=== PATIENT | male | born 1970 | race Caucasian/White ===

== ENCOUNTER 2020-06-08 19:57 | Inpatient (IN) | payer SELFPAY ==
[~2020-06-08] VITALS: Ht 180.3 cm; Wt 78.9 kg
[2020-06-08 19:38] VITALS: BP 172/116
[2020-06-08] MEDS: VANCOMYCIN PER PHARMACY MC PRN (20:28)
[2020-06-08] MEDS ORDERED: ONDANSETRON ODT 4 MG TAB.RAPDIS. PO PRN (20:30)
[2020-06-08] MEDS ORDERED: ACETAMINOPHEN 325 MG TABLET. PO PRN (20:30)
--- NOTE | 2020-06-08 20:32 | NUR ---
Pharmacy Vancomycin Dosing Note S: Consulted to monitor and dose vancomycin started 06/08/20. O: RUFINA SANCHEZ is a 49 year old M with right foot infection. Other Antibiotics: ZOSYN 3.375 GM Q6HRS LABS: Last BUN: 19 Last Creatinine: 1.2 Creatinine Clearance: 78 mL/min Last WBC: 8.9 Tmax (past 24 hours): 99.3 Last dose given 06/08/20 at 1618 Vancomycin Dosing: Dosing Weight: Actual Target Trough: 10-20 A: Based on: patient's age, weight and renal function. P: 1. Begin Vancomycin 1250 mg IV q12h after inital loading dose. 2. Follow up Trough level on 06/10/20 at 1530. 3. Pharmacy will continue to monitor, follow and adjust therapy as needed. CORKY MELÉNDEZ RPH, 06/08/202031
[2020-06-08 23:30] VITALS: BP 154/105
[2020-06-09] VITALS (7 sets, daily range): BP systolic 147–179; BP diastolic 90–132
[2020-06-09] MEDS: PIPERACILLIN/TAZOBACTAM 3.375 GM in IV NORMAL SALINE 50ML 50 ML IV SCH ×4 (00:16→19:59)
[2020-06-09] MEDS: VANCOMYCIN 1.25 GM in IV NORMAL SALINE 250ML 250 ML IV SCH ×2 (03:33→18:02)
[2020-06-09 08:29] LABS: BASO % 0 % (0-3); EOS # 0.1 x10^3/uL (0.0-0.7); EOS % 1 % (0-3); HEMATOCRIT 40.4 % (39.0-53.0); LYMPH % 16 % (24-48); MEAN CORPUSCULAR HEMOGLOBIN 33 pg (25-35); MEAN CORPUSCULAR HGB CONC 35 g/dL (31-37); MEAN CORPUSCULAR VOLUME 96 fL (79-100); MONO # 0.5 x10^3/uL (0.0-1.1); MONO % 8 % (0-9); NEUT # 4.9 x10^3/uL (1.8-7.7); NEUT % 76 % (31-73); PLATELET COUNT 192 x10^3/uL (140-400); RED CELL DISTRIBUTION WIDTH 13.2 % (11.5-14.5); WHITE BLOOD COUNT 6.5 x10^3/uL (4.0-11.0)
[2020-06-09 08:57] LABS: ALBUMIN 2.5 g/dL (3.4-5.0); ALBUMIN/GLOBULIN RATIO 0.7 (1.0-1.7); CALCIUM 8.3 mg/dL (8.5-10.1); CREATININE 0.9 mg/dL (0.7-1.3); GFR 90.4; POTASSIUM 3.6 mmol/L (3.5-5.1); TOTAL BILIRUBIN 1.2 mg/dL (0.2-1.0); TOTAL PROTEIN 6.1 g/dL (6.4-8.2)
--- NOTE | 2020-06-09 09:08 | PDOC ---
Infectious Disease Note Vital Sign Vital Signs Vital Signs Date Time Temp Pulse Resp B/P (MAP) Pulse Ox O2 Delivery O2 Flow Rate FiO2 06/09/20 07:00 98.4 64 19 155/96 (115) 95 Room Air 98.4 Labs Lab Laboratory Tests Test 06/09/20 07:35 06/09/20 07:38 Sodium Level 139 mmol/L (136-145) Potassium Level 3.6 mmol/L (3.5-5.1) Chloride Level 107 mmol/L (98-107) Carbon Dioxide Level 21 mmol/L (21-32) Anion Gap 11 (6-14) Blood Urea Nitrogen 11 mg/dL (8-26) Creatinine 0.9 mg/dL (0.7-1.3) Estimated GFR (Cockcroft-Gault) 90.4 BUN/Creatinine Ratio 12 (6-20) Glucose Level 113 mg/dL (70-99) Calcium Level 8.3 mg/dL (8.5-10.1) Total Bilirubin 1.2 mg/dL (0.2-1.0) Aspartate Amino Transf (AST/SGOT) 13 U/L (15-37) Alanine Aminotransferase (ALT/SGPT) 21 U/L (16-63) Alkaline Phosphatase 72 U/L (46-116) C-Reactive Protein, Quantitative 103.4 mg/L (0-3.3) Total Protein 6.1 g/dL (6.4-8.2) Albumin 2.5 g/dL (3.4-5.0) Albumin/Globulin Ratio 0.7 (1.0-1.7) White Blood Count 6.5 x10^3/uL (4.0-11.0) Red Blood Count 4.20 x10^6/uL (4.30-5.70) Hemoglobin 14.0 g/dL (13.0-17.5) Hematocrit 40.4 % (39.0-53.0) Mean Corpuscular Volume 96 fL (79-100) Mean Corpuscular Hemoglobin 33 pg (25-35) Mean Corpuscular Hemoglobin Concent 35 g/dL (31-37) Red Cell Distribution Width 13.2 % (11.5-14.5) Platelet Count 192 x10^3/uL (140-400) Neutrophils (%) (Auto) 76 % (31-73) Lymphocytes (%) (Auto) 16 % (24-48) Monocytes (%) (Auto) 8 % (0-9) Eosinophils (%) (Auto) 1 % (0-3) Basophils (%) (Auto) 0 % (0-3) Neutrophils # (Auto) 4.9 x10^3/uL (1.8-7.7) Lymphocytes # (Auto) 1.0 x10^3/uL (1.0-4.8) Monocytes # (Auto) 0.5 x10^3/uL (0.0-1.1) Eosinophils # (Auto) 0.1 x10^3/uL (0.0-0.7) Basophils # (Auto) 0.0 x10^3/uL (0.0-0.2) Objective Assessment pt seen, consult dictated Plan Plan of Care / DOMENIC BEASLEY MD Jun 09, 2020 09:08
--- NOTE | 2020-06-09 09:31 | NUR ---
SW following. Discussed with RN, pt from home with family, room air, regular diet. Discussion RE possible I&D. Med Assist following for self pay status. SW will continue to follow.
--- NOTE | 2020-06-09 10:06 | CONS ---
DATE OF CONSULTATION: 06/09/2020 REQUESTING PHYSICIAN: Orlin Antoine MD REASON FOR CONSULTATION: Right foot infection. HISTORY OF PRESENT ILLNESS: This is a 49-year-old gentleman who was transferred from [facility]. The patient has developed a right foot wound, probably about a week ago, although he has had callus before then as he has spina bifida. He has had the leg lengthening surgery done when he was a child and has since then off and on he is getting pressure on the right leg and developing some wound. Has had some right foot surgery done in the past. SOCIAL HISTORY: Negative for smoking, alcohol or illicit drug use. ALLERGIES: No known drug allergies. CURRENT MEDICATIONS: The patient is on vancomycin and Zosyn. REVIEW OF SYSTEMS: As per HPI, all other systems reviewed are negative. PHYSICAL EXAMINATION: GENERAL: Alert, oriented gentleman, not in distress. VITAL SIGNS: Stable, afebrile. HEENT: NAD. NECK: Supple, no JVP, no lymphadenopathy. LUNGS: Clear. HEART: S1, S2 regular. ABDOMEN: Benign. EXTREMITIES: No edema, cyanosis. SKIN: Unremarkable other than right foot, has a large abscess on the plantar and lateral surface of the right foot with some erythema onto the dorsal surface as well as purulent drainage from the wound and some necrotic tissue. SKIN: Rest of the skin examination unremarkable. NEUROLOGIC: The patient is neurologically alert, awake and appropriate. No focal neurologic deficit. LABORATORY DATA: White count is 6.5. BUN and creatinine is normal. The patient did have x-ray of the foot, which showed a remodeling of the proximal fifth and to a lesser extent the proximal fourth metatarsal. His blood culture and/or any culture done at [place], we will try to obtain. IMPRESSION: 1. Right foot abscess. 2. Right foot cellulitis. 3. Leukocytosis. 4. Spina bifida. RECOMMENDATIONS: Will have Vascular Surgery and/or Orthopedic Surgery look at it and he will need I and D. Thank you very much, Dr. Antoine, for giving me the opportunity to participate in this patient's care. DOMENIC BEASLEY MD DR: YOSI/jennifer JOB#: [id number] / [id number]
--- NOTE | 2020-06-09 11:02 | PN ---
DATE: 06/09/2020 SUBJECTIVE: The patient is resting, slightly propped up in bed, in no apparent distress. On questioning him, he denied any complaint, in particular denied any pain or fever. He was seen by the Infectious Disease specialist and orthopedic surgeon. The orthopedic surgeon was consulted for probably incision and drainage. Meanwhile, he was continued on his vancomycin and Zosyn for now. PHYSICAL EXAMINATION: GENERAL: When I examined him this morning, he looked well and was clearly in no apparent respiratory distress. No pallor, jaundice, cyanosis or thyromegaly. No jugular venous distention or limb edema. VITAL SIGNS: Her heart rate was 64, blood pressure was 155/96, temperature was 98.4, respiratory rate was 19 and oxygen saturation was 95% on room air. EXTREMITIES: Right foot is still erythematous with an abscess in the outer aspect of the right foot. LABORATORY DATA: Her lab work this morning showed a white cell count 6500, hemoglobin 14, hematocrit 40, MCV 96, and platelet count of 192,000. His chemistry showed a serum sodium of 139, potassium 3.6, chloride 107, bicarbonate 21, anion gap of 11, BUN 11, creatinine 0.9, estimated GFR was 90 mL per minute. His glucose was 113, calcium was 8.3. Total bilirubin 1.2. AST, ALT, alkaline phosphatase were normal. C-reactive protein was 103 mg/dL, total protein was 6.1, albumin 2.5. ASSESSMENT: Right foot cellulitis, right foot abscess spina bifida. PLAN: To continue with IV antibiotic. Await evaluation by the orthopedic surgeon. CHUNG MOODY MD DR: REZA/jennifer JOB#: [id number] / [id number]
--- NOTE | 2020-06-09 11:24 | HP ---
ADMIT DATE: 06/08/2020 HISTORY OF PRESENT ILLNESS: The patient is a 49-year-old male patient who was seen yesterday at [facility] Emergency Room with a complaint of wound in the lateral aspect of his right foot together with swelling and redness. He apparently had had spina bifida and stated that he always has a callus on the outer side of his right foot. He apparently had surgery that made his left lower extremity is longer than the right lower extremity and therefore most of his weight is on right side, the outer aspect of the right foot. Last Saturday, he noted that he has an open wound and his right foot become red, swollen, warm to touch and with purulent drainage; however, denied any fever, chills or rigors. He has been taking Aleve for pain at home with little relief. He is a daily drinker. He drinks 2 cans of beer after work. He was evaluated in the Emergency Room and has had lab work, which showed his white cell count to be normal as well as his chemistry and x-ray of the right foot showed that the patient has significant soft tissue swelling laterally, has bony remodeling of the proximal fifth and to lesser extent the proximal fourth metatarsal. This could be secondary to old infection. There is no lytic destruction changes to suggest acute infarction. Clinical correlation is suggested. Therefore, the patient was started on IV antibiotic in the form of vancomycin and Zosyn and was transferred to [facility] to consult the Infectious Disease specialist and perhaps the orthopedic surgeon. PAST MEDICAL HISTORY: Significant for spina bifida. He has recurrent right foot infection, left sided footdrop. He is incontinent of his urine. PAST SURGICAL HISTORY: Significant for surgery to lengthen his left lower extremity. He has also a tendon transfer his right foot. ALLERGIES: He has no known drug allergies. MEDICATIONS: He is on Aleve occasionally that is [id number], none by prescription. FAMILY HISTORY: He has 2 brothers who are younger and healthy. His father is still alive at the age of 68 and has hypertension. Mother is alive at the age of 67 and has diabetes mellitus. SOCIAL HISTORY: He is single, has 2 daughters. He quit smoking about 20 years ago. He drinks 2 beers daily after work, does not use any drugs. 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 REVIEW OF SYSTEMS: As per history of present illness. PHYSICAL EXAMINATION: GENERAL: On arrival to the Emergency Room, he looked well and was clearly in no apparent respiratory distress. No pallor, jaundice, cyanosis or thyromegaly. No jugular venous distention. No lower limb edema. VITAL SIGNS: His heart rate was 92, blood pressure was 147/107, temperature was 99.3, respiratory rate was 26 and oxygen saturation was 96% on room air. HEAD, EYES, EARS, NOSE AND THROAT: Showed normocephalic, atraumatic. NECK: Supple. HEART: Normal first and second heart sounds. No gallop, rub or murmur. CHEST: Clear to auscultation. No crepitation or rhonchi. ABDOMEN: Distended, scaphoid, soft, nontender. NEUROLOGIC: He is awake, alert, responding appropriately. All cranial nerves are intact. He moves all extremities without difficulty, has marked muscle wasting and footdrop on the left side. Right foot is markedly swollen, red with open wound on the outer aspect. LABORATORY DATA: His lab work on arrival to the Emergency Room showed a white cell count 8900, hemoglobin 16, hematocrit 47, MCV 96, and platelet count 215,000. His chemistry showed a serum sodium 136, potassium 3.7, chloride 101, bicarbonate 29, anion gap of 6, BUN 19, creatinine 1.2, estimated GFR was 65 mL per minute, his glucose 131, lactic acid was 1.5, calcium was 9.1. Total bilirubin, AST, ALT, alkaline phosphatase were normal. Total protein 7.6, albumin was 3.2. Urinalysis showed the urine was yellow, turbid with a pH of 7, specific gravity of 1.025. The urine showed trace of protein, negative for glucose, small amount of ketones, trace of blood, negative for nitrite and bilirubin, small amount of leukocyte esterase, occasional rbc's, 20-40 wbc's, and many bacteria. ASSESSMENT AND PLAN: The patient was transferred to [facility] with right foot cellulitis, questionable urinary tract infection and he was started on vancomycin and Zosyn. I have consulted the Infectious Disease specialist and we might have to consult the orthopedic surgeon for surgical debridement. CHUNG MOODY MD DR: REZA/jennifer JOB#: [id number] / [id number]
[2020-06-09] MEDS ORDERED: PROPOFOL 10 MG/ML (20ML) VIAL. IV ONE (12:26)
[2020-06-09] MEDS ORDERED: LIDOCAINE 2% PF 5 ML VIAL. ONE (12:26)
[2020-06-09] MEDS ORDERED: IV RINGERS,LACTATED 1000ML 1,000 ML IV SCH (13:00)
[2020-06-09] MEDS ORDERED: fentaNYL PF VIAL 100 MCG/2 ML VIAL IVP PRN (13:00)
[2020-06-09] MEDS ORDERED: PROCHLORPERAZINE 10 MG/2 ML VIAL. IVP PRN (13:00)
[2020-06-09] MEDS ORDERED: HYDROmorphone 2 MG/ML VIAL IVP PRN (13:00)
--- NOTE | 2020-06-09 13:31 | CONS ---
DATE OF CONSULTATION: 06/09/2020 REQUESTING PHYSICIAN: Dr. Brian Kay. REASON FOR CONSULTATION: Right foot infection. HISTORY OF PRESENT ILLNESS: The patient is a 49-year-old male with a history of spinal condition and a leg length discrepancy and he had a lengthening done on his left leg, it made it a bit longer than the right. He also has a drop foot on the left, wearing an ASO brace and has had some chronic callous over the lateral aspect of the right foot as he turns the foot outward apparently accommodate for the leg length discrepancy. He says over the past few days he has had drainage of that callused area on the right foot and developed a large swollen knot over the foot and redness and pain. He denies any fever, chills and was admitted from [facility] Emergency Department with the foot infection. PAST MEDICAL HISTORY: Significant for the spinal condition congenitally, urinary incontinence and a left-sided foot drop. PAST SURGICAL HISTORY: Lengthening of his left lower extremity and a tendon transfer procedure. ALLERGIES: He has no known drug allergies. MEDICATIONS: He occasionally takes an anti-inflammatory [id number] most recently Aleve. SOCIAL HISTORY: He is single, with 2 daughters. Quit smoking 20 years ago. Occasional alcohol consumption, couple of beers, perhaps after work. 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 FAMILY HISTORY: Father with hypertension, mother with diabetes, 2 healthy brothers. REVIEW OF SYSTEMS: Significant for the recent right foot pain, redness, swelling and drainage. Denies any fever, chills or penetrating injury. Otherwise, negative review of systems other than per the history of present illness. PHYSICAL EXAMINATION: GENERAL: Pleasant, cooperative 49-year-old male, alert and oriented, no acute distress. EXTREMITIES: Examination of the right foot reveals a large callused area over approximately the mid fifth metatarsal area laterally and plantarly, appears to have oozing drainage with some serous nature, but some purulence as well. He has significant redness around and a large swollen area around the callused area on the lateral aspect of his foot. He can wiggle his toes and no severe tenderness over the tendon sheaths. On examination of the left leg, he does have slightly longer left leg than right and has foot drop, wears an ASO brace. Skin is otherwise intact and he has normal alignment and stability of bilateral hips, knees and ankles. IMAGING: X-rays show some bony remodeling over the lateral aspect of his foot. IMPRESSION: Right lateral foot wound with infection. TREATMENT PLAN: I went over with him the necessity of surgically exploring and debriding any devitalized tissue in this area. we would generally leave this open and may be packed perhaps the use of a wound VAC later, but at this time, I would expect that he may even need multiple procedures for debridement as the tissue tends to declare itself later, somewhat and this could be a long time in healing up and required extensive wound care, other procedures and even potentially loss of his foot if the infection is not able to be controlled adequately. All his questions were answered. He wishes to proceed with surgical evaluation and treatment, which will occur today about 2:00 p.m. as he had breakfast at a little before 8:00. TU CHI MD DR: BRITTANY/jennifer JOB#: [id number] / [id number]
[2020-06-09] MEDS ORDERED: DEXAMETHASONE SOD PHOS 4 MG/ML VIAL ONE (14:16)
[2020-06-09] MEDS ORDERED: ONDANSETRON PF 4 MG/2 ML VIAL. ONE (14:16)
[2020-06-09] MEDS ORDERED: fentaNYL PF VIAL 100 MCG/2 ML VIAL ONE ×2 (14:16→16:06)
[2020-06-09] MEDS ORDERED: hydrALAZINE 20 MG/ML VIAL. ONE (14:31)
[2020-06-09] MEDS ORDERED: LABETALOL 20 MG/4 ML DISP.SYRIN. IVP ONE (14:31)
[2020-06-09] MEDS: hydrALAZINE 20 MG/ML VIAL. IVP PRN ×2 (14:38→19:42)
[2020-06-09] MEDS ORDERED: LABETALOL 20 MG/4 ML DISP.SYRIN. IVP PRN ×2 (14:45→21:30)
[2020-06-09] MEDS ORDERED: MORPHINE SULFATE 2 MG/ML VIAL. ONE ×2 (16:06→16:59)
[2020-06-09] MEDS: MORPHINE SULFATE 2 MG/ML VIAL. IVP PRN ×4 (16:12→17:15)
[2020-06-09] MEDS: fentaNYL PF VIAL 100 MCG/2 ML VIAL IVP PRN ×2 (16:38→16:48)
--- NOTE | 2020-06-09 16:46 | PDOC4 ---
Operative Note Operative Note Date of surgery: 06/09/2020 Preoperative diagnosis: Right foot ulcer with deep tissue infection Postoperative diagnosis: Same Operative procedure: Irrigation debridement of right foot ulcer and infection with debridement down to but not including bone, application of wound VAC right foot Surgeon: Fadi Anesthesia: General Estimated blood loss: 100 cc Complications: None Operative indications: Please see my dictated orthopedic consult for detailed operative indications Operative text: Patient was identified procedure verified patient placed in the supine position on the operating table. After adequate amounts of general anesthesia were administered the right lower extremity was prepped and draped in standard sterile fashion and after timeout was performed patient procedure of identified and verified a longitudinal incision was made centered on the ulcerated area and extensive debridement was carried out of the tissue probing deep to the ulcer. There did not appear to be clinical evidence of osteomyelitis after debridement down to but not including bone but extensive soft tissue was removed allowing excision of involved skin around the ulcerated area and removal of the callus and excision of excess skin. Bleeding points were controlled by electrocautery. After removal of all devitalized visible tissue thorough irrigation carried out with normal saline solution and pulse lavage. Wound VAC foam was then applied and dressing was verified to hold suction. There was at first some bloody drainage which resolved into just slight bloody drainage with mostly bubbles. Patient was returned to recovery room in stable condition having tolerated the procedure well TU CHI MD Jun 09, 2020 16:46
--- NOTE | 2020-06-09 17:26 | NUR ---
Wound Care Received call from CUSTOMER SERVICE CORRESPONDENCE CLERK Elo re: wound vac alarming. Upon assessment, vac canister had > 100cc of sanguinous drainage, vac turned off at this time, paged Dr. Aponte. After speaking with Dr. Aponte, orders received to remove vac and dressing, apply light pressure dressing and attempt to apply vac tomorrow. Vac dressing and foam removed, area of slow bleed at 9:00, pressure held for > 5 minutes, then applied Biopad (collagen pad), covered with Xeroform gauze, dry gauze, ABD, kerlix and Coban. Pt educated on having RN cut Coban off if any signs of pain or numbness, pt v/u. Pt has an easily palpable pedal pulse, foot warm. Also instructed pt to keep leg elevated on multiple pillows. Will re-evaluate tomorrow for vac application. POC discussed with Elo, CUSTOMER SERVICE CORRESPONDENCE CLERK.
--- NOTE | 2020-06-09 19:42 | NUR ---
Blood pressure 179/135. Hydralazine 10mg given IV push. Will monitor.
[2020-06-09] MEDS: oxyCODONE IR 5 MG TABLET PO PRN (19:59)
--- NOTE | 2020-06-09 21:00 | NUR ---
Patient c/o abdominal pain. Patient was only able to void 30cc urine. Bladder scan done. Results 860cc. Blood pressure at 2055 155/98.
[2020-06-09] MEDS: LACTOBACILLUS RHAMNOSUS GG 1 CAPSULE. PO SCH (21:01)
--- NOTE | 2020-06-09 21:20 | NUR ---
Dr. Antoine called regarding bladder scan results and patient's BP. Orders received.
--- NOTE | 2020-06-09 21:50 | NUR ---
Patient was straight catheterized and residual amount of urine was 1200cc. Will continue to monitor.
[2020-06-10] MEDS: PIPERACILLIN/TAZOBACTAM 3.375 GM in IV NORMAL SALINE 50ML 50 ML IV SCH ×5 (00:48→23:33)
[2020-06-10 03:00] VITALS: BP 135/88
[2020-06-10] MEDS: VANCOMYCIN 1.25 GM in IV NORMAL SALINE 250ML 250 ML IV SCH (04:00)
[2020-06-10 07:00] VITALS: BP 124/91
--- NOTE | 2020-06-10 08:35 | PDOC ---
Infectious Disease Note Subjective Subjective pt is feeling good, did have I and D ROS ROS no n/v/d/ Vital Sign Vital Signs Vital Signs Date Time Temp Pulse Resp B/P (MAP) Pulse Ox O2 Delivery O2 Flow Rate FiO2 06/10/20 07:00 98.2 77 18 124/91 (102) 97 Room Air 98.2 06/09/20 15:53 10 Physical Exam PHYSICAL EXAM GENERAL: Alert, oriented gentleman, not in distress. VITAL SIGNS: Stable, afebrile. HEENT: NAD. NECK: Supple, no JVP, no lymphadenopathy. LUNGS: Clear. HEART: S1, S2 regular. ABDOMEN: Benign. EXTREMITIES: No edema, cyanosis. SKIN: Unremarkable other than right foot, post surgery dressing not opened NEUROLOGIC: The patient is neurologically alert, awake and appropriate. No focal neurologic deficit. Labs Lab Laboratory Tests Test 06/09/20 13:05 Coronavirus (PCR) Not detected (Not Detected) SARS-CoV-2 Antigen (Rapid) Negative (NEGATIVE) Objective Assessment IMPRESSION: 1. Right foot abscess. s/p I and D 2. Right foot cellulitis. 3. Leukocytosis. 4. Spina bifida. Plan Plan of Care cont antibiotics check cultures DOMENIC BEASLEY MD Jun 10, 2020 08:34
[2020-06-10] MEDS: LACTOBACILLUS RHAMNOSUS GG 1 CAPSULE. PO SCH ×2 (09:58→20:42)
--- NOTE | 2020-06-10 10:15 | PN ---
DATE: 06/10/2020 SUBJECTIVE: The patient is resting, slightly propped up in bed, in no apparent distress. He underwent irrigation and debridement of the right foot ulcer and infection with debridement down to, but not to including bone, application of wound VAC. He continued to be on IV antibiotic in the form of Zosyn and vancomycin and on questioning him, he denied any complaint except that he is concerned about the length of stay and whether the wound VAC to be applied again. I explained to him that we will obviously have to wait for the culture and sensitivity and once that becomes available, then might be escalated his antibiotic and might come to [facility] for outpatient treatment. PHYSICAL EXAMINATION: GENERAL: On examining him, he looked pale, cachectic, but no jaundice, cyanosis or thyromegaly. No jugular venous distention. No lower limb edema. VITAL SIGNS: His heart rate was 77, blood pressure was 124/91, temperature was 98.2, respiratory rate was 18 and oxygen saturation was 97%. HEAD, EYES, EARS, NOSE AND THROAT: Showed normocephalic, atraumatic. NECK: Supple. HEART: Showed normal first and second heart sounds. No gallop, rub or murmur. CHEST: Clear to auscultation. No crepitation or rhonchi. ABDOMEN: Distended, soft, nontender. NEUROLOGIC: He was stable. His intake and output are incompletely recorded. LABORATORY DATA: Showed a BUN of 11, creatinine 0.9, normal electrolytes. His hemoglobin and hematocrit are normal with normal white cell count and platelets. ASSESSMENT: Right foot cellulitis and right foot abscess, status post incision and drainage; spina bifida; urinary retention; left-sided footdrop. PLAN: To continue with IV antibiotic. Continue with pain management. Continue with wound care. Await the result of the culture and sensitivity and once that becomes available, we might be able to deescalate his antibiotic and he can be discharged home to continue treatment as an outpatient. CHUNG MOODY MD DR: REZA/jennifer JOB#: [id number] / [id number]
[2020-06-10 11:00] VITALS: BP 120/86
--- NOTE | 2020-06-10 13:26 | NUR ---
SW following. Discussed with RN, pt from home with family, room air, regular diet. Pt had an I&D on 06/09/20, possibility of needing a wound vac, however it was removed due to bleeding. Wound care will see pt again and determine wound vac. Pt on IV abx, awaiting cultures and sensitivities to determine abx at discharge. Pt has no medicaid qualifiers at this time. SW will continue to follow.
[2020-06-10 15:00] VITALS: BP 118/72
[2020-06-10] MEDS: oxyCODONE IR 5 MG TABLET PO PRN ×2 (15:26→23:33)
--- NOTE | 2020-06-10 15:30 | NUR ---
Patient requesting nicotine patch because he chew tobacco at home. Dr. Antoine was paged and ordered received
[2020-06-10 16:00] LABS: VANC TR 10.5 mcg/mL (10.0-20.0)
[2020-06-10] MEDS: VANCOMYCIN PER PHARMACY MC PRN (16:20)
--- NOTE | 2020-06-10 16:23 | NUR ---
Pharmacy Vancomycin Dosing Note S: Consulted to monitor and dose vancomycin started 06/08/20. O: RUFINA SANCHEZ is a 49 year old M with , FOOT INFECTION . Other Antibiotics: ZOSYN 3.375 GM Q6HRS LABS: Last BUN: 11 Last Creatinine: 0.9 Creatinine Clearance: >100 mL/min Last WBC: 6.5 Tmax (past 24 hours): AFEBRILE Drug Levels: Last Trough level: 10.5 on 06/10/20 at 1530 Last dose given 06/10/20 at 0400 Target Trough: 10-20 A: Based on: due to improved renal function, regimen has been adjusted to 1000mg IV q8hrs. P: 1. Change Vancomycin 1000 mg IV q8h 2. Follow up Trough level on 06/11/20 at 1530 3. Pharmacy will continue to monitor, follow and adjust therapy as needed. KATHERINE LY [facility] [place], 06/10/20 [id number]
--- NOTE | 2020-06-10 16:55 | NUR ---
Wound Care Wound Type/Assessment: Patient is a 49 year old male, S/P Surgical I&D to right lateral foot. Surgery was on 06/09/2020. Wound vac was removed post-op and pressure dressing applied by RAI. Patient is seen today for re-application of the wound vac veriflow. Pressure dressing was removed. No bleeding noted at this time. Wound bed is dark red with areas of loose tissue. The wound tunnels at the mid 3:00 position to 2cm. Th 5th metatarsal capsule is palpated at distal end of the tunnel. No other areas of exposed bone were noted Minimal drainage at this time. Drainage is serosanguineous. Periwound is red and edematous. Treatment Recommendations/Plan: Wound vac Veriflow applied. 1 piece of thomas foam was used and bridge was to right lateral lower leg. Excellent seal for -125mmHg of negative pressure. Installation of normal saline set for 16cc's to be instilled for 5 minutes of soak every 4 hours. Rook boot for right foot was ordered. Education provided: Education on the function of the wound vac was explained to the patient. Application for a [facility] vac was given to the patient and will be picked up on 06/13/2020. Offloading surface/device: Rook boot ordered Recommended Referrals/Tests: Monitor for signs of infection and any new bleeding. Refer to Dr. Aponte. Discharge Recommendations for dressings: Most likely a home wound vacuum
[2020-06-10] MEDS: VANCOMYCIN 1 GM in IV NORMAL SALINE 250ML 250 ML IV SCH ×2 (18:35→23:35)
[2020-06-10 19:00] VITALS: BP 142/93
[2020-06-10] MEDS: NICOTINE 21MG PATCH. TD PRN (20:00)
[2020-06-10 23:00] VITALS: BP 146/99
[2020-06-11 03:10] VITALS: BP 124/79
[2020-06-11] MEDS: PIPERACILLIN/TAZOBACTAM 3.375 GM in IV NORMAL SALINE 50ML 50 ML IV SCH ×3 (06:11→17:20)
[2020-06-11 07:31] VITALS: BP 128/84
--- NOTE | 2020-06-11 07:57 | PDOC ---
Infectious Disease Note Subjective Subjective pt is feeling good, did have I and D No F/C/S/N/V/SOA/rash. Occ loose stool - better with probiotic ROS ROS o/w neg Vital Sign Vital Signs Vital Signs Date Time Temp Pulse Resp B/P (MAP) Pulse Ox O2 Delivery O2 Flow Rate FiO2 06/11/20 07:31 97.4 62 18 128/84 (99) 97 Room Air 97.4 06/11/20 00:33 10.0 Physical Exam PHYSICAL EXAM GENERAL: Alert, oriented gentleman, not in distress. HEENT: NAD. -PEERL. OC/Op - clear NECK: Supple, no JVP, no lymphadenopathy. LUNGS: Clear. HEART: S1, S2 regular. ABDOMEN: Benign. EXTREMITIES: No edema, cyanosis. SKIN: Unremarkable other than right foot, with vac and trace erythema and edema NEUROLOGIC: The patient is neurologically alert, awake and appropriate. No focal neurologic deficit. Labs Lab Laboratory Tests Test 06/10/20 15:14 Vancomycin Level Trough 10.5 mcg/mL (10.0-20.0) Vancomycin Last Dose Date 06/10/20 Vancomycin Last Dose Time 0400 Micro MODERATE [BETA STREP GROUP C] on 06/11/20 at 0833 BETA STREP GROUP C Unless otherwise specified, Testing Performed by: [address] [address] For Inquires, the Physician may contact the Microbiology department at [phone] GRAM STAIN Final Final GRAM POSITIVE COCCI:RARE SQUAMOUS EPI CELL:NONE SEEN Microbiology 06/09/20 Gram Stain - Final, Resulted 06/09/20 Aerobic and Anaerobic Culture, Resulted Pending Objective Assessment 1. Right foot abscess. s/p I and D - prelim Strep C - no bone involvement 2. Right foot cellulitis. 3. Leukocytosis. 4. Spina bifida. Plan Plan of Care cont Zosyn - for now and D/c Vanc BMp in am check cultures D/w PAMELLA Machado MD Jun 11, 2020 07:57
--- NOTE | 2020-06-11 08:30 | PN ---
DATE: 06/11/2020 SUBJECTIVE: The patient is resting slightly propped up in bed, eating his breakfast comfortably, in no apparent distress. On questioning him, he denied any complaint. Nursing staff did not voice any concern, stated that he had an uneventful night. His wound is covered with wound vacuum-assisted closure device. His Gram stain showed growth of gram-positive cocci; however, the culture is still pending at the time of this dictation. PHYSICAL EXAMINATION: GENERAL: When I examined him, he looked well and was clearly in no apparent respiratory distress. No pallor, jaundice, cyanosis or thyromegaly. No jugular venous distention. No limb edema. VITAL SIGNS: His heart rate was 62, blood pressure was 128/84, temperature was 97.4, respiratory rate was 18 and oxygen saturation was 97% on room air. The rest of exam is stable. The swelling and erythema of the right foot is slightly less and he has a wound VAC in place. His intake was 1800 and output was 1500. LABORATORY DATA: No lab work is available today. ASSESSMENT: 1. Right foot cellulitis. 2. Right foot abscess status post incision and drainage. 3. Spina bifida. 4. Urinary retention. 5. Left-sided foot drop. PLAN: 1. To continue with IV antibiotic. 2. To continue with wound vacuum-assisted closure device. 3 . Continue with pain management. 4. Await the result of the culture and sensitivity. CHUNG MOODY MD DR: REZA/jennifer JOB#: [id number] / [id number]
--- NOTE | 2020-06-11 09:33 | PDOC ---
PROGRESS NOTES Date of Service DATE: 06/11/20 TIME: 09:29 Subjective Subjective Problems overnight: Foot pain controlled no other complaints Objective Vital Signs Vital Signs Date Time Temp Pulse Resp B/P (MAP) Pulse Ox O2 Delivery O2 Flow Rate FiO2 06/11/20 07:31 97.4 62 18 128/84 (99) 97 Room Air 97.4 06/11/20 00:33 10.0 Physical Exam Wound VAC is intact there is no really surrounding erythema, redness of foot and swelling has overall decreased since preoperative, distal neurovascular status intact Labs Laboratory Tests Test 06/09/20 13:05 06/10/20 15:14 Coronavirus (PCR) Not detected (Not Detected) SARS-CoV-2 Antigen (Rapid) Negative (NEGATIVE) Vancomycin Level Trough 10.5 mcg/mL (10.0-20.0) Vancomycin Last Dose Date 06/10/20 Vancomycin Last Dose Time 0400 Laboratory Tests Test 06/10/20 15:14 Vancomycin Level Trough 10.5 mcg/mL (10.0-20.0) Vancomycin Last Dose Date 06/10/20 Vancomycin Last Dose Time 0400 Assessment Assessment POD#irrigation debridement right foot infection Plan Plan of Care Continue antibiotics and wound VAC treatment I briefly discussed with him options down the road if infection is resolving the possibility of continued wound VAC treatment and letting this heal from the inside out versus the possibility of an additional procedure for debridement and closure depending on wound progress He was concerned about going back to work and I told him if accommodations could be made keeping him nonweightbearing with a knee scooter or similar that perhaps he could go back based on his medical status improving and ability to manage wound care and antibiotics. As far as weightbearing on the foot, he would really have to be well-healed and able to withstand pressure on the area without causing wound breakdown which could be a much longer term Wound care currently and I will follow along in his treatment Justicifation of Admission Dx: Justifications for Admission: Justification of Admission Dx: N/A TU CHI MD Jun 11, 2020 09:33
[2020-06-11] MEDS: NICOTINE 21MG PATCH. TD PRN (10:37)
[2020-06-11] MEDS: LACTOBACILLUS RHAMNOSUS GG 1 CAPSULE. PO SCH ×2 (10:37→21:24)
[2020-06-11 10:45] VITALS: BP 134/93
[2020-06-11 14:30] VITALS: BP 145/93
[2020-06-11] MEDS: oxyCODONE IR 5 MG TABLET PO PRN (17:35)
[2020-06-11 19:05] VITALS: BP 142/92
[2020-06-11 23:06] VITALS: BP 153/99
[2020-06-12] MEDS: PIPERACILLIN/TAZOBACTAM 3.375 GM in IV NORMAL SALINE 50ML 50 ML IV SCH ×5 (00:10→23:41)
[2020-06-12] MEDS: oxyCODONE IR 5 MG TABLET PO PRN ×2 (00:17→19:36)
[2020-06-12 02:56] VITALS: BP 153/98
[2020-06-12 07:13] VITALS: BP 140/86
[2020-06-12] MEDS: LACTOBACILLUS RHAMNOSUS GG 1 CAPSULE. PO SCH ×2 (07:59→19:36)
--- NOTE | 2020-06-12 08:42 | PDOC ---
Infectious Disease Note Subjective Subjective pt is feeling ok No F/C/S/N/V/SOA/rash. Occ loose stool - better with probiotic ROS ROS o/w neg Vital Sign Vital Signs Vital Signs Date Time Temp Pulse Resp B/P (MAP) Pulse Ox O2 Delivery O2 Flow Rate FiO2 06/12/20 07:13 98.1 68 18 140/86 (104) 98 Room Air 98.1 06/11/20 18:35 10.0 Physical Exam PHYSICAL EXAM GENERAL: Alert, oriented gentleman, not in distress. HEENT: NAD. -PEERL. OC/Op - clear NECK: Supple, no JVP, no lymphadenopathy. LUNGS: Clear. HEART: S1, S2 regular. ABDOMEN: Benign. EXTREMITIES: No edema, cyanosis. SKIN: Unremarkable other than right foot, with vac and trace erythema and edema have improved NEUROLOGIC: The patient is neurologically alert, awake and appropriate. No focal neurologic deficit. Labs Micro MODERATE [BETA STREP GROUP C] on 06/11/20 at 0833 BETA STREP GROUP C Unless otherwise specified, Testing Performed by: [address] [address] For Inquires, the Physician may contact the Microbiology department at [phone] GRAM STAIN Final Final GRAM POSITIVE COCCI:RARE SQUAMOUS EPI CELL:NONE SEEN Microbiology 06/09/20 Gram Stain - Final, Resulted 06/09/20 Aerobic and Anaerobic Culture, Resulted Pending Objective Assessment 1. Right foot abscess. s/p I and D - prelim Strep C - no bone involvement 2. Right foot cellulitis. 3. Leukocytosis. 4. Spina bifida. Plan Plan of Care cont Zosyn - for now and D/c Vanc F/u labs check cultures PAMELLA DOWLING MD Jun 12, 2020 08:42
[2020-06-12 08:47] LABS: CALCIUM 9.1 mg/dL (8.5-10.1); GFR 80.1; POTASSIUM 4.1 mmol/L (3.5-5.1)
[2020-06-12 10:36] VITALS: BP 146/95
--- NOTE | 2020-06-12 12:24 | PN ---
DATE: 06/12/2020 SUBJECTIVE: The patient is resting, slightly propped up in bed, in no apparent distress, awake, alert. On questioning him, he denied any complaint. Nursing staff did not voice any concern that he had an eventful night. He was seen by ____ and he is nonweightbearing; however, he could go back to work in a knee scooter; however, he needs to continue nonweightbearing and with wound VAC. His cultures showed beta Streptococcus group C and therefore his vancomycin was discontinued. He continues to be on Zosyn. PHYSICAL EXAMINATION: GENERAL: When I saw him this morning, he looked pale, but no jaundice, cyanosis or thyromegaly. No jugular venous distention or limb edema. VITAL SIGNS: His heart rate was 68, blood pressure was 140/86, temperature was 98.1, respiratory rate was 18 and oxygen saturation was 98%. The rest of the exam is stable. His wound of the right foot is covered with wound vacuum-assisted closure device. His intake was 1400, output was 1200. LABORATORY DATA: As of this morning, his serum sodium 141, potassium 4.1, chloride 106, bicarbonate 28, anion gap of 7, BUN 17, creatinine 1, estimated GFR was 80 mL per minute. His glucose was 95, calcium was 9.1. ASSESSMENT: 1. Right foot cellulitis. 2. Right foot abscess, status post incision and drainage and coverage with wound vacuum-assisted closure device. His cultures have grown group C Streptococcus. 3. Spina bifida. 4. Urinary retention. 5. Left-sided foot drop. PLAN: To continue with IV Zosyn. Continue with wound care and wound vacuum-assisted closure device. Continue with pain management. CHUNG MOODY MD DR: REZA/jennifer JOB#: [id number] / [id number]
[2020-06-12] MEDS: NICOTINE 21MG PATCH. TD PRN (12:49)
[2020-06-12 14:24] VITALS: BP 130/77
[2020-06-12 19:00] VITALS: BP 140/91
[2020-06-12 23:06] VITALS: BP 138/86
[2020-06-13] VITALS (7 sets, daily range): BP systolic 134–168; BP diastolic 83–110
[2020-06-13] MEDS: PIPERACILLIN/TAZOBACTAM 3.375 GM in IV NORMAL SALINE 50ML 50 ML IV SCH (05:57)
[2020-06-13] MEDS: LACTOBACILLUS RHAMNOSUS GG 1 CAPSULE. PO SCH ×2 (08:48→21:03)
--- NOTE | 2020-06-13 09:56 | PDOC ---
Infectious Disease Note Subjective Subjective pt is feeling ok No F/C/S/N/V/SOA/rash. Occ loose stool - better with probiotic Vital Sign Vital Signs Vital Signs Date Time Temp Pulse Resp B/P (MAP) Pulse Ox O2 Delivery O2 Flow Rate FiO2 06/13/20 07:47 Room Air 06/13/20 07:24 97.6 55 18 144/93 (110) 97 97.6 Physical Exam PHYSICAL EXAM GENERAL: Alert, oriented gentleman, not in distress. HEENT: NAD. -PEERL. OC/Op - clear NECK: Supple, no JVP, no lymphadenopathy. LUNGS: Clear. HEART: S1, S2 regular. ABDOMEN: Benign. EXTREMITIES: No edema, cyanosis. SKIN: Unremarkable other than right foot, with vac and trace erythema and edema have improved NEUROLOGIC: The patient is neurologically alert, awake and appropriate. No focal neurologic deficit. Labs Micro GRAM STAIN Final Final GRAM POSITIVE COCCI:RARE SQUAMOUS EPI CELL:NONE SEEN PMN (WBCs):MANY Unless otherwise specified, Testing Performed by: [address] [id number] For Inquires, the Physician may contact the Microbiology department at [phone] ANAEROBIC-AEROBIC CULTURE Preliminary Preliminary MODERATE [BETA STREP GROUP C] on 06/11/20 at 0833 BETA STREP GROUP C Unless otherwise specified, Testing Performed by: [address] [address] For Inquires, the Physician may contact the Microbiology department at [phone] Objective Assessment IMPRESSION: 1. Right foot abscess. s/p I and D 2. Right foot cellulitis. 3. Leukocytosis. 4. Spina bifida. Plan Plan of Care Patient can be discharged on p.o. Augmentin Wound VAC Follow-up in the wound care DOMENIC BEASLEY MD Jun 13, 2020 09:56
--- NOTE | 2020-06-13 10:51 | NUR ---
SW following. Discussed with RN, pt from home with family, rom air, regular diet. Pt switched to oral abx, awaiting [facility] wound vac. Pt needing a knee scooter. KEO met with pt, pt did not have a preference of provider. [place], [place] has them for $485 private pay. [facility] does not have these. Voicemail left for [employer]. KEO will continue to follow. Addendum: 06/13/20 at 1220 by SOFIYA CROWLEY KEO called [employer] again - they have knee scooters to rent for $85 a month. KEO discussed with pt, he is agreeable. Script faxed to [employer], awaiting confirmation.
--- NOTE | 2020-06-13 10:58 | PN ---
DATE: 06/13/2020 SUBJECTIVE: The patient is resting, slightly propped up, sleeping comfortably, in no apparent distress. On questioning him, he denied any complaint. The nursing staff did not voice any concerns that he had an eventful night. PHYSICAL EXAMINATION: GENERAL: When I examined him, he looked pale, but no jaundice, cyanosis or thyromegaly. No jugular venous distention. No limb edema. VITAL SIGNS: His heart rate was 65, blood pressure was 144/93, temperature was 97.6, respiratory rate was 18 and oxygen saturation was 97% on room air. HEAD, EYES, EARS, NOSE, AND THROAT: Showed normocephalic, atraumatic. NECK: Supple. HEART: Normal first and second heart sounds. No gallop, rub, or murmur. CHEST: Clear to auscultation. No crepitation or rhonchi. ABDOMEN: Distended, soft, nontender. NEUROLOGIC: He is awake, alert, responding appropriately. All cranial nerves are intact. She moves upper extremities without difficulty. Has spina bifida with marked muscle wasting and weakness in both lower extremities. He has left-sided footdrop. He has right foot cellulitis and abscess that was incised and drained. His wound is covered with wound vacuum-assisted closure device. His intake and output are incompletely recorded. LABORATORY DATA: His most recent serum sodium was 141, potassium 4.1, chloride 106, bicarbonate 28, anion gap of 7, BUN 17, creatinine 1. Estimated GFR was 80 mL per minute. His glucose was 95, calcium was 9.1. His white cell count was 6500; hemoglobin 14; hematocrit 40; MCV 96; and platelet count of 192,000. His wound culture has grown beta Streptococcus group C. ASSESSMENT: 1. Right foot cellulitis. 2. Right foot abscess, status post incision and drainage with coverage with wound vacuum-assisted closure device. His wound culture has grown beta Streptococcus group C. 3. Spina bifida. 4. Urinary retention. 5. Left-sided foot drop. PLAN: To continue with wound care and wound vacuum-assisted closure device. Continue with IV Zosyn. His wound culture has grown beta Streptococcus group C as well as Staphylococcus simulans. CHUNG MOODY MD DR: REZA/jennifer JOB#: [id number] / [id number]
[2020-06-13] MEDS: NICOTINE 21MG PATCH. TD PRN (16:20)
[2020-06-13] MEDS: oxyCODONE IR 5 MG TABLET PO PRN ×2 (18:36→21:11)
[2020-06-13] MEDS: AMOXICILLIN/K CLAV 875/125MG TABLET. PO SCH (21:03)
[2020-06-14 03:00] VITALS: BP 162/100
[2020-06-14 07:00] VITALS: BP 151/96
[2020-06-14] MEDS: LACTOBACILLUS RHAMNOSUS GG 1 CAPSULE. PO SCH (08:19)
[2020-06-14] MEDS: AMOXICILLIN/K CLAV 875/125MG TABLET. PO SCH (08:19)
[2020-06-14] MEDS ORDERED: AMOX1TAB61 PO (08:41)
--- NOTE | 2020-06-14 08:54 | PDOC ---
Infectious Disease Note Subjective Subjective pt is feeling ok No F/C/S/N/V/SOA/rash. Occ loose stool - better with probiotic Vital Sign Vital Signs Vital Signs Date Time Temp Pulse Resp B/P (MAP) Pulse Ox O2 Delivery O2 Flow Rate FiO2 06/14/20 07:35 Room Air 06/14/20 07:00 98.3 57 16 151/96 (114) 95 98.3 Physical Exam PHYSICAL EXAM GENERAL: Alert, oriented gentleman, not in distress. HEENT: NAD. -PEERL. OC/Op - clear NECK: Supple, no JVP, no lymphadenopathy. LUNGS: Clear. HEART: S1, S2 regular. ABDOMEN: Benign. EXTREMITIES: No edema, cyanosis. SKIN: Unremarkable other than right foot, with vac and trace erythema and edema have improved NEUROLOGIC: The patient is neurologically alert, awake and appropriate. No focal neurologic deficit. Labs Micro GRAM STAIN Final Final GRAM POSITIVE COCCI:RARE SQUAMOUS EPI CELL:NONE SEEN PMN (WBCs):MANY Unless otherwise specified, Testing Performed by: [address] [address] For Inquires, the Physician may contact the Microbiology department at [phone] ANAEROBIC-AEROBIC CULTURE Preliminary Preliminary MODERATE [BETA STREP GROUP C] on 06/11/20 at 0833 BETA STREP GROUP C Unless otherwise specified, Testing Performed by: [address] [address] For Inquires, the Physician may contact the Microbiology department at [phone] Objective Assessment IMPRESSION: 1. Right foot abscess. s/p I and D 2. Right foot cellulitis. 3. Leukocytosis. 4. Spina bifida. Plan Plan of Care Patient can be discharged on p.o. Augmentin Wound VAC Follow-up in the wound care DOMENIC BEASLEY MD Jun 14, 2020 08:54
--- NOTE | 2020-06-14 10:18 | NUR ---
SS following up with discharge planning. SS reviewed pt chart and discussed with pt RN. Pt is currently on room air. Self pay. Discharge order on the chart for home with self care. Pt needing knee scooter for home. SS met with pt and contacted [employer], ; fax [phone]. Knee scooter is $85/month. Pt agreed to payment. Pilo at [employer] spoke with pt and pt provided address and phone number. Pt requested that Knee Scooter be delivered to the home and reported that he would provide the technical delivery manager with a check for the first month payment once the walker was delivered. Delivery scheduled for tomorrow morning or later this afternoon if there is availability. Pt's RN notified. Addendum: 06/14/20 at 1023 by CHERI MIRANDA SS received notification that home wound vac will be provided to pt today.
[2020-06-14 11:00] VITALS: BP_SYST 149; BP_SYST 173; BP_DIAS 109; BP_DIAS 98
--- NOTE | 2020-06-14 11:40 | NUR ---
Notified Dr. Antoine of elevated blood pressure, new order for one time dose of amlodipine.
[2020-06-14] MEDS: NICOTINE 21MG PATCH. TD PRN (11:47)
[2020-06-14] MEDS: oxyCODONE IR 5 MG TABLET PO PRN (14:42)
[2020-06-14 15:00] VITALS: BP 151/101
--- NOTE | 2020-06-14 15:10 | NUR ---
Wound Care Wound Type/Assessment: Follow up assessment of R lateral foot abscess s/p I&D on 06/08/20. Vac dressing removed, cleansed, measured, and pictured. Wound bed showing granulation with exposed cartilage and adipose. No tunnels or undermining noted. Dorsal edge of wound continues to be exaggerated and swollen. At 9:00 wound bed oozing bright red blood, unable to be stopped completely by silver nitrate stick. Applied Lidia Collagen, saline moistened gauze packing and secured with coban to apply pressure. Will return in 15 minutes to reassess. Treatment Recommendations/Plan: Education provided: Educated on home wound vac and follow up wound care. Offloading surface/device: Recommended Referrals/Tests: Discharge Recommendations for dressings: Follow up in outpatient on Saturday06/17/20 at 1:30pm for wound vac management
--- NOTE | 2020-06-14 15:35 | NUR ---
Wound Care: Able to place wound vac to right lateral foot at this time. skin prepped and one piece of vac placed to wound bed. There is minimal bleeding at this time. Vac tracked up to right lateral lower leg with a good seal maintained at 125mmHg continuous. Pt again educated on wound vac therapy and trouble shooting. Pt given wound care card with contacts and follow up appointment. Rooke boot for right foot. Pt v/u of all vac education. Bed lowered and call light in reach. RN notified that patient ready for discharge.
--- NOTE | 2020-06-14 15:57 | NUR ---
Discharge Note: LORA SANCHEZ Discharge instructions and discharge home medications reviewed with Patient and a copy given. All questions have been answered and understanding verbalized. The following instructions and handouts were given: information about medications, follow up appointments, weight bearing status, etc. Discontinued lines and drains: IV line in right forearm removed, catheter tip intact. Patient discharged to home with self care with family member, wheelchair used for mobility to discharge vehicle.
--- NOTE | 2020-07-03 09:57 | DS ---
DATE OF DISCHARGE: 06/14/2020 HOSPITAL COURSE: The patient is a 49-year-old male patient who was admitted on 06/09/2020 as a transfer from [facility] Emergency Room, where he was seen with a complaint of wound in the lateral aspect of his right foot together with swelling and redness. He apparently has had spina bifida and stated that he always has a callus on the outer aspect of his right foot apparently had had surgery that made his left lower extremity longer than the right lower extremity and therefore, most of his weight is on right side. A few days before admission, he noted that he has an open wound and his right foot has become red, swollen, warm to touch and the purulent drainage; however, he denied any fever, chills or rigors. He has been taking Aleve for pain at home with little relief. He was evaluated in the Emergency Room. His lab work showed that his white cell count was normal as well as his chemistry. X-ray of the foot showed that the patient has significant soft tissue swelling laterally, has bony remodeling of the proximal fifth to a lesser extent the proximal fourth metatarsal. This could be secondary to old infection. There is no lytic destruction or change suggesting acute infarction. The patient therefore was started on vancomycin and Zosyn and was transferred to [facility]. We will consult the Infectious Disease as well as the orthopedic surgeon. He was seen by Dr. Aponte and he underwent irrigation and debridement of the right foot ulcer and infection with debridement down to, but not including bone, application of wound vacuum-assisted closure device. He was continued on IV antibiotic, followed by the Infectious Disease. He was started on wound vacuum-assisted closure device as he remained stable. His Zosyn was switched to p.o. Augmentin as his culture grew gram-positive cocci consistent with beta Streptococcus group as well as Staphylococcus simulans. Her antibiotic was switched to be given in the form of Augmentin and the patient was discharged home on wound VAC, to continue with oral antibiotic and to follow with wound care team. PHYSICAL EXAMINATION: GENERAL: On the day of discharge, he looked well and was clearly in no apparent respiratory distress. No pallor, jaundice, cyanosis or thyromegaly. No jugular venous distension. No limb edema. VITAL SIGNS: His heart rate was 62, blood pressure 151/101, temperature was 98.4, respiratory rate was 16, and oxygen saturation was 96% on room air. HEAD, EYES, EARS, NOSE AND THROAT: Stable. EXTREMITIES: His wound on the outer aspect of the right foot is covered with wound vacuum-assisted closure device. LABORATORY DATA: His lab work showed his serum sodium to be 141, potassium 4.1, chloride 106, bicarbonate 28, anion gap of 7, BUN 17, creatinine 1, estimated GFR was 80 mL per minute. His glucose was 95 and calcium was 9.1. DISCHARGE MEDICATIONS: He was discharged home to continue on Augmentin 875 mg twice a day with food for 7 more days. Continue with wound VAC and follow with wound care team. CHUNG MOODY MD DR: REZA/jennifer JOB#: [id number] / [id number]
== END 2020-06-14 15:57 | disposition home or self-care (01) | DRG 571 ==
LOC: 4 NORTH 19:57
PROVIDERS: ADMIT Internal Medicine; ATTEND Internal Medicine
PROC: 0JBQ0ZZ Excision of Right Foot Subcutaneous Tissue and Fascia, Open Approach (ICD-10-PCS; principal; 2020-06-09 14:00)
DX: L03.115 Cellulitis of right lower limb (principal); L02.611 Cutaneous abscess of right foot; L97.519 Non-pressure chronic ulcer of other part of right foot with unspecified severity; M21.379 Foot drop, unspecified foot; R33.9 Retention of urine, unspecified; Q05.9 Spina bifida, unspecified; Z82.49 Family history of ischemic heart disease and other diseases of the circulatory system; Z83.3 Family history of diabetes mellitus; Z87.891 Personal history of nicotine dependence; Z20.822 Contact with and (suspected) exposure to COVID-19; B95.4 Other streptococcus as the cause of diseases classified elsewhere
CPT/HCPCS: 36415; 80048; 80053; 80202; 85025; 86140; 87071; 87075; 87102; 87147; 87176; 87426; J0360; J1100; J2270; J2405; J2543; J2704; J3010; J3370; J7050; J7120; U0003; A4461; G0378; J7030